=== PATIENT | female | born 1990 | race Hispanic/Latino ===

== ENCOUNTER 2017-04-08 16:53 | Emergency (ER) | payer OTHER | END 2017-04-08 18:05 | disposition home or self-care (01) | LOC: ERS 16:53 | DX: J06.9 Acute upper respiratory infection, unspecified (principal); F41.9 Anxiety disorder, unspecified | CPT/HCPCS: 99283 ==

== ENCOUNTER 2017-06-20 08:16 | Emergency (ER) | payer OTHER ==
[2017-06-20] MEDS ORDERED: Ibuprofen 800 MG TAB ONE (10:00)
== END 2017-06-20 09:12 | disposition home or self-care (01) ==
LOC: ERS 08:16
DX: G56.01 Carpal tunnel syndrome, right upper limb (principal); F41.9 Anxiety disorder, unspecified
CPT/HCPCS: 99283

== ENCOUNTER 2017-07-24 07:27 | Emergency (ER) | payer MEDICAID, SELFPAY ==
[2017-07-24] MEDS ORDERED: Dexamethasone 10 MG/ML VIAL ONE (07:53)
[2017-07-24] MEDS ORDERED: Ondansetron ODT 4 MG TAB ONE (07:53)
[2017-07-24 08:00] LABS: #Basophils 0.1 thou/uL (0.0-0.2); #Eosinphils 0.5 thou/uL (0.0-0.7); #Lymphocytes 3.1 thou/uL (1.20-3.40); #Monocytes 0.5 thou/uL (0.11-0.59); #Neutrophils 4.3 thou/uL (1.40-6.50); %Basophils 0.8 % (0.0-1.0); %Eosinophils 6.1 % (0.0-10.0); %Lymphocytes 36.6 % (21.0-51.0); %Monocytes 5.9 % (0.0-10.0); %Neutrophils 50.6 % (42.0-75.0); Mean Corpuscular HGB CONC 34.2 g/dL (32.0-36.0); Mean Corpuscular Hemoglobin 30.6 pg (27.0-31.0); Mean Corpuscular Volume 89.3 fl (81.0-99.0); Mean Platelet Volume 9.5 fL (7.4-10.4); Platelet Count 197 thou/uL (130-400); RBC Distribution Width 11.6 % (11.5-14.5); Red Blood Cell (RBC) Count 4.57 mill/uL (4.20-5.40); White Blood Cell (WBC) Count 8.4 thou/uL (4.8-10.8)
[2017-07-24 08:25] LABS: ALT (SGPT) 21 U/L (8-55); AST (SGOT) 17 U/L (5-34); Albumin 3.9 g/dL (3.5-5.0); Alkaline Phosphatase 86 U/L (40-150); Anion Gap 10 mmol/L (10-20); BUN (Urea Nitrogen) 8 mg/dL (7.0-18.7); Bilirubin, Total 0.4 mg/dL (0.2-1.2); Calc. Creatinine Clearance 0 mL/min (70-130); Calcium 8.5 mg/dL (7.8-10.44); Carbon Dioxide 25 mmol/L (22-29); Chloride 105 mmol/L (98-107); Estimated GFR-MDRD Greater than 90; Globulin 2.4 g/dL (2.4-3.5); Glucose 108 mg/dL (70-105); Lipase 13 U/L (8-78); Protein, Total 6.3 g/dL (6.0-8.3); Sodium 136 mmol/L (136-145)
[2017-07-24 08:59] LABS: Pregnancy Test - Urine (BHCG) Negative (Negative); Pregu Control Background? CLEAR/WHITE (CLR/WHITE); Pregu Control Bar Appear? YES (CONTROL BAR); Specific Gravity 1.019 (1.002-1.036)
== END 2017-07-24 09:34 | disposition home or self-care (01) ==
LOC: ERS 07:27
DX: L30.9 Dermatitis, unspecified (principal); R11.0 Nausea; F41.9 Anxiety disorder, unspecified
CPT/HCPCS: 36415; 80053; 81025; 83690; 85025; 96372; J1100; Q0162

== ENCOUNTER 2017-08-23 04:37 | Emergency (ER) | payer SELFPAY ==
[2017-08-23] MEDS ORDERED: Ondansetron ODT 8 MG TAB ONE (05:00)
[2017-08-23 05:28] LABS: Bilirubin Small (Negative); Blood, Urine Small (Negative); Clarity TURBID (Clear); Glucose, Urine (Dipstick) Negative (Negative); Leukocyte Moderate (Negative); Nitrite Negative (Negative); Pregnancy Test - Urine (BHCG) Negative (Negative); Pregu Control Background? CLEAR/WHITE (CLR/WHITE); Pregu Control Bar Appear? YES (CONTROL BAR); Protein, Urine (Dipstick) 30 mg/dL (Neg-Trace); Specific Gravity, Urine 1.034 (1.002-1.036)
[2017-08-23 05:30] LABS: Bacteria/HPF 4+ HPF (None Seen)
[2017-08-23 05:34] LABS: Pathc Cast-AUWi Flag 25.03 (0-2.49)
[2017-08-23 05:35] LABS: Specific Gravity 1.034 (1.002-1.036)
[2017-08-23 05:44] LABS: Hyaline Casts/LPF NONE SEEN LPF (0-3 Hyaline); Manual Microscopic Reviewed? No Path Casts Seen
[2017-08-23] MEDS ORDERED: Metoclopramide HCl 10 MG TAB ONE (05:59)
[2017-08-23] MEDS ORDERED: Ketorolac Tromethamine 60 MG/2 ML VIAL ONE (05:59)
== END 2017-08-23 06:20 | disposition home or self-care (01) ==
LOC: ERS 04:37
DX: J02.9 Acute pharyngitis, unspecified (principal); N39.0 Urinary tract infection, site not specified; F41.9 Anxiety disorder, unspecified
CPT/HCPCS: 81003; 81015; 81025; 87081; 87086; 87430; 96372; J1885

== ENCOUNTER 2017-09-09 23:29 | Emergency (ER) | payer SELFPAY ==
--- NOTE | 2017-09-09 23:57 | RAD ---
LEFT HAND THREE VIEW: History: Patient smashed hand with a cart at work. Contusion. Injury. Comparison: None. FINDINGS: No acute displaced fracture or malalignment. IMPRESSION: No acute abnormality. POS: [facility]
== END 2017-09-10 01:16 | disposition home or self-care (01) ==
LOC: ERS 23:29
DX: S60.222A Contusion of left hand, initial encounter (principal); W22.8XXA Striking against or struck by other objects, initial encounter

== ENCOUNTER 2018-06-04 06:33 | Emergency (ER) | payer SELFPAY | END 2018-06-04 07:03 | disposition home or self-care (01) | LOC: ERS 06:33 | DX: B34.9 Viral infection, unspecified (principal) | CPT/HCPCS: 99283 ==

== ENCOUNTER 2019-04-30 18:24 | Emergency (ER) | payer SELFPAY | END 2019-04-30 19:14 | disposition home or self-care (01) | LOC: ERS 18:24 | DX: J06.9 Acute upper respiratory infection, unspecified (principal) | CPT/HCPCS: 87081; 87430; 87804; 99283 ==

== ENCOUNTER 2020-08-04 08:28 | Outpatient (CLI) | payer OTHER | END 2020-08-04 08:29 | disposition home or self-care (01) | LOC: BICULT 08:28 | PROVIDERS: ATTEND Family Medicine | DX: Z34.82 Encounter for supervision of other normal pregnancy, second trimester (principal); Z3A.19 19 weeks gestation of pregnancy; O32.1XX0 Maternal care for breech presentation, not applicable or unspecified | CPT/HCPCS: 76805 ==